=== PATIENT | female | born 1965 | race Caucasian/White ===

== ENCOUNTER 2020-07-26 09:35 | Observation (INO) | payer OTHER ==
[2020-07-26 10:23] LABS: #Eosinphils 0.1 10x3/uL (0.0-0.5); #Monocytes 0.5 10x3/uL (0.0-1.1); #Neutrophils 4.6 10x3/uL (1.5-8.4); %Basophils 0.6 % (0.0-2.0); %Eosinophils 1.6 % (0.0-6.0); %Lymphocytes 23.5 % (18.0-47.0); %Monocytes 6.8 % (0.0-10.0); %Neutrophils 67.1 % (40.0-75.0); Hemoglobin 12.6 g/dL (12.0-15.5); Mean Corpuscular HGB CONC 32.9 g/dL (32.0-36.0); Mean Corpuscular Hemoglobin 30.1 pg (27.0-33.0); Mean Corpuscular Volume 91.4 fl (81.6-98.3); Mean Platelet Volume 9.8 fl (7.4-10.4); Platelet Count 284 10x3/uL (150-450); RBC Distribution Width 12.9 % (11.5-14.5); Red Blood Cell (RBC) Count 4.19 10x6/uL (3.90-5.03); White Blood Cell (WBC) Count 6.8 10x3/uL (3.5-10.5)
[2020-07-26 10:33] LABS: ALT (SGPT) 18 U/L (8-55); AST (SGOT) 18 U/L (5-34); Albumin 4.1 g/dL (3.5-5.0); Alkaline Phosphatase 124 U/L (40-110); Anion Gap 17 mmol/L (10-20); BUN (Urea Nitrogen) 10 mg/dL (9.8-20.1); Bilirubin, Total 0.3 mg/dL (0.2-1.2); Calc. Creatinine Clearance 0 mL/min (70-130); Carbon Dioxide 24 mmol/L (22-29); Chloride 103 mmol/L (98-107); Globulin 3.1 g/dL (2.4-3.5); Glucose 205 mg/dL (70-105); Potassium 4.5 mmol/L (3.5-5.1); Protein, Total 7.2 g/dL (6.0-8.3); Sodium 139 mmol/L (136-145)
[2020-07-26 11:00] LABS: Calcium 9.2 mg/dL (7.8-10.44)
[2020-07-26] MEDS ORDERED: Nitroglycerin 2% Ointment 1 INCH/1 GM Packet ONE (11:14)
[2020-07-26] MEDS ORDERED: Aspirin 325 MG TAB ONE (11:15)
[2020-07-26] MEDS ORDERED: Bisacodyl 10 MG SUPP PR PRN (13:31)
[2020-07-26] MEDS ORDERED: Dextrose 50% Abboject 50 ML SYRINGE SLOW IVP PRN (13:31)
[2020-07-26] MEDS ORDERED: Acetaminophen 325 MG TAB PO PRN (13:31)
[2020-07-26] MEDS ORDERED: Dextrose 5% in Water 1,000 ML IV PRN (13:31)
[2020-07-26] MEDS ORDERED: Guaifenesin DM 100-10/5 ML UDCUP PO PRN (13:31)
[2020-07-26] MEDS ORDERED: Senokot S 8.6-50 MG TAB PO PRN (13:31)
[2020-07-26] MEDS ORDERED: HumaLOG 300 UNITS/3 ML VIAL SC PRN ×2 (13:31)
[2020-07-26] MEDS ORDERED: HYDROcodone/Acetaminophen 5/325 mg Tablet PO PRN (13:31)
[2020-07-26] MEDS ORDERED: Zolpidem Tartrate 5 MG TAB PO PRN (13:31)
[2020-07-26] MEDS ORDERED: Ondansetron PF 4 MG/2 ML Vial IVP PRN (13:31)
[2020-07-26] MEDS ORDERED: Ondansetron ODT 4 MG TAB PO PRN (13:31)
[2020-07-26] MEDS ORDERED: Nitroglycerin 0.4 MG TAB (25 Tab Bottle) SL PRN (13:31)
[2020-07-26] MEDS ORDERED: Calcium Carbonate 500 MG ChewTAB PO PRN (13:31)
[2020-07-26] MEDS ORDERED: Loperamide HCl 2 MG CAP PO PRN (13:31)
[2020-07-26 13:40] LABS: Troponin I Less than 0.010 ng/mL (< 0.028)
[2020-07-26 13:56] VITALS: BMI 39.3
[2020-07-26 16:11] LABS: Troponin I Less than 0.010 ng/mL (< 0.028)
[2020-07-26] MEDS: Famotidine 20 MG TAB PO SCH (21:35)
[2020-07-27 02:31] LABS: SARS-CoV-2 PCR by NAA Not Detected (NotDetected)
[2020-07-27 06:23] LABS: Cardiac Risk 3.5 (Less than 4.5)
[2020-07-27] MEDS: Famotidine 20 MG TAB PO SCH (08:46)
[2020-07-27] MEDS ORDERED: Aspirin 325 MG TAB PO SCH (09:00)
[2020-07-27 11:06] LABS: Hemoglobin A1c 8.4 % (4.0-6.0)
[2020-07-27 12:11] VITALS: BP 133/72; TEMP 97.9
== END 2020-07-27 14:41 | disposition home or self-care (01) ==
LOC: CSHERS 09:35 → CSHTELE 11:25 → INTOOBSV 12:19 → UNDOADMOB 12:19 → CSHTELE 12:19
PROVIDERS: ADMIT Internal Medicine; ATTEND Internal Medicine
DX: R07.9 Chest pain, unspecified (principal); E11.9 Type 2 diabetes mellitus without complications; E66.9 Obesity, unspecified; M19.90 Unspecified osteoarthritis, unspecified site; G62.9 Polyneuropathy, unspecified; F41.9 Anxiety disorder, unspecified; Z79.899 Other long term (current) drug therapy; Z79.84 Long term (current) use of oral hypoglycemic drugs; Z20.822 Contact with and (suspected) exposure to COVID-19
CPT/HCPCS: 36415; 36416; 71045; 80053; 80061; 83036; 84484; 85025; 87635; 93005; 93306; G0378; U0003; U0005

== ENCOUNTER 2021-01-31 18:20 | Emergency (ER) | payer OTHER ==
[2021-01-31 19:37] LABS: #Basophils 0.1 10x3/uL (0.0-0.2); #Eosinphils 0.3 10x3/uL (0.0-0.5); #Monocytes 0.5 10x3/uL (0.0-1.1); #Neutrophils 3.7 10x3/uL (1.5-8.4); %Basophils 0.8 % (0.0-2.0); %Eosinophils 4.4 % (0.0-6.0); %Lymphocytes 29.1 % (18.0-47.0); %Monocytes 8.4 % (0.0-10.0); %Neutrophils 57.1 % (40.0-75.0); Hemoglobin 11.1 g/dL (12.0-15.5); Mean Corpuscular HGB CONC 31.2 g/dL (32.0-36.0); Mean Platelet Volume 9.6 fl (7.4-10.4); Platelet Count 326 10x3/uL (150-450); RBC Distribution Width 13.5 % (11.5-14.5); Red Blood Cell (RBC) Count 3.83 10x6/uL (3.90-5.03); White Blood Cell (WBC) Count 6.4 10x3/uL (3.5-10.5)
[2021-01-31 19:53] LABS: ALT (SGPT) 8 U/L (8-55); AST (SGOT) 13 U/L (5-34); Alkaline Phosphatase 103 U/L (40-110); Anion Gap 15 mmol/L (10-20); BUN (Urea Nitrogen) 11 mg/dL (9.8-20.1); Bilirubin, Total 0.4 mg/dL (0.2-1.2); Calc. Creatinine Clearance 0 mL/min (70-130); Calcium 9.5 mg/dL (7.8-10.44); Carbon Dioxide 26 mmol/L (22-29); Chloride 105 mmol/L (98-107); Globulin 3.3 g/dL (2.4-3.5); Glucose 104 mg/dL (70-105); Potassium 4.9 mmol/L (3.5-5.1); Protein, Total 7.3 g/dL (6.0-8.3); Sodium 141 mmol/L (136-145)
[2021-01-31] MEDS ORDERED: Fleet Enema 133 ML BOT PR SCH (21:30)
== END 2021-01-31 23:23 | disposition home or self-care (01) ==
LOC: CSHERS 18:20
DX: K59.00 Constipation, unspecified (principal); G62.9 Polyneuropathy, unspecified; M19.90 Unspecified osteoarthritis, unspecified site; M79.7 Fibromyalgia
CPT/HCPCS: 74177; 80053; 85025; 93005; 93010; 96372; J0500

== ENCOUNTER 2021-02-14 08:39 | Outpatient (CLI) | payer OTHER | END 2021-02-14 08:40 | disposition home or self-care (01) | LOC: CSHRAD 08:39 | PROVIDERS: ATTEND Orthopaedic Surgery | DX: M54.50 Low back pain, unspecified (principal); Z98.890 Other specified postprocedural states; M47.816 Spondylosis without myelopathy or radiculopathy, lumbar region | CPT/HCPCS: 72100 ==

== ENCOUNTER 2021-04-25 09:15 | Outpatient (CLI) | payer OTHER | END 2021-04-25 09:16 | disposition home or self-care (01) | LOC: CSHRAD 09:15 | PROVIDERS: ATTEND Orthopaedic Surgery | DX: M54.50 Low back pain, unspecified (principal); M51.36 Other intervertebral disc degeneration, lumbar region | CPT/HCPCS: 72100 ==

== ENCOUNTER 2021-08-14 12:16 | Outpatient (CLI) | payer OTHER ==
[2021-08-14 13:24] LABS: Hemoglobin 10.8 g/dL (12.0-15.5); Mean Corpuscular HGB CONC 31.5 g/dL (32.0-36.0); Mean Corpuscular Volume 92.2 fl (81.6-98.3); Mean Platelet Volume 9.8 fl (7.4-10.4); Platelet Count 267 10x3/uL (150-450); RBC Distribution Width 15.5 % (11.5-14.5); Red Blood Cell (RBC) Count 3.72 10x6/uL (3.90-5.03); White Blood Cell (WBC) Count 6.5 10x3/uL (3.5-10.5)
[2021-08-14 14:15] LABS: Anion Gap 11 mmol/L (10-20); BUN (Urea Nitrogen) 11 mg/dL (9.8-20.1); Calc. Creatinine Clearance 0 mL/min (70-130); Calcium 8.6 mg/dL (7.8-10.44); Carbon Dioxide 28 mmol/L (22-29); Chloride 107 mmol/L (98-107); Glucose 92 mg/dL (70-105); Potassium 5.1 mmol/L (3.5-5.1); Sodium 141 mmol/L (136-145)
[2021-08-15 00:48] LABS: SARS-CoV-2 PCR by NAA Not Detected (NotDetected)
== END 2021-08-14 12:17 | disposition home or self-care (01) ==
LOC: CSHLAB 12:16
PROVIDERS: ATTEND Orthopaedic Surgery
DX: Z01.812 Encounter for preprocedural laboratory examination (principal); Z20.822 Contact with and (suspected) exposure to COVID-19
CPT/HCPCS: 80048; 82306; 85027; U0003; U0005

== ENCOUNTER 2021-08-17 10:42 | Observation (INO) | payer OTHER ==
[2021-08-15 09:28] VITALS: BMI 35.6
[2021-08-17] MEDS ORDERED: Acetaminophen 500 MG TAB ONE (11:46)
[2021-08-17] MEDS ORDERED: Gabapentin 300 MG CAP ONE (11:46)
[2021-08-17] MEDS ORDERED: Ketorolac Tromethamine 30 MG/ML VIAL ONE (11:47)
[2021-08-17] MEDS ORDERED: ceFAZolin 2 GM/Dextrose 50 ML IVPB ONE (12:50)
[2021-08-17] MEDS ORDERED: Neomycin-Polymyxin 1 ML AMP ONE (12:50)
[2021-08-17] MEDS ORDERED: Fentanyl 100 MCG/2 ML VIAL ONE ×3 (12:53→14:43)
[2021-08-17] MEDS ORDERED: PROPOFOL 20 ML ONE ×2 (12:53→14:36)
[2021-08-17] MEDS ORDERED: EPINEPHrine 1 MG/ML AMP ONE (12:55)
[2021-08-17] MEDS ORDERED: Bupivacaine PF 0.5% 30 ML VIAL ONE (12:55)
[2021-08-17] MEDS ORDERED: Ondansetron PF 4 MG/2 ML Vial ONE (13:49)
[2021-08-17] MEDS ORDERED: PHENYLEPHRINE-NS 100 MCG/ML 10 ML SYRINGE ONE (13:49)
[2021-08-17] MEDS ORDERED: Glycopyrrolate 0.2 MG/ML 5 ML SYRINGE ONE (13:49)
[2021-08-17] MEDS ORDERED: Rocuronium Bromide 10 MG/ML (10ML VIAL) ONE (13:49)
[2021-08-17] MEDS ORDERED: Lidocaine 1% PF 5 ML VIAL ONE (13:49)
[2021-08-17] MEDS ORDERED: Midazolam HCl 2 mg/2 ml Vial ONE (13:50)
[2021-08-17] MEDS ORDERED: HYDROmorphone 0.5 MG/0.5 ML SYRINGE ONE (15:35)
[2021-08-17] MEDS ORDERED: Zolpidem Tartrate 5 MG TAB PO PRN ×2 (15:45→22:00)
[2021-08-17] MEDS ORDERED: diphenhydrAMINE 50 MG/ML VIAL IM/IV PRN (15:45)
[2021-08-17] MEDS ORDERED: Ondansetron PF 4 MG/2 ML Vial IVP PRN (15:45)
[2021-08-17] MEDS ORDERED: HYDROmorphone 40 MG/20 ML 10 MG in Sodium Chloride 0.9% 45 ML IV PRN (15:45)
[2021-08-17] MEDS ORDERED: Promethazine HCl 25 MG/ML VIAL IM PRN (15:45)
[2021-08-17] MEDS ORDERED: Naloxone HCl 0.4 mg/ml Vial IV PRN (15:45)
[2021-08-17] MEDS ORDERED: diphenhydrAMINE 25 MG CAP PO PRN (15:45)
[2021-08-17] MEDS ORDERED: HYDROmorphone HCL/PF 10 MG in Sodium Chloride 0.9% 49 ML IVPB PRN (17:00)
[2021-08-17] MEDS ORDERED: Ondansetron ODT 4 MG TAB PO PRN (20:31)
[2021-08-17] MEDS: Gabapentin 300 MG CAP PO SCH (21:37)
[2021-08-17] MEDS: HYDROcodone/Acetaminophen 10/325 mg Tablet PO PRN (21:37)
[2021-08-17] MEDS ORDERED: HYDROcodone/Acetaminophen 10/325 mg Tablet PO PRN (22:00)
[2021-08-18] MEDS: HYDROcodone/Acetaminophen 10/325 mg Tablet PO PRN ×2 (03:40→09:00)
[2021-08-18] MEDS: Morphine 4 MG/ML VIAL SLOW IVP PRN ×2 (06:13→10:29)
[2021-08-18] MEDS ORDERED: hydrALAZINE 20 MG/ML VIAL ONE (06:47)
[2021-08-18] MEDS ORDERED: hydrALAZINE 20 MG/ML VIAL SLOW IVP PRN (06:48)
[2021-08-18] MEDS: Gabapentin 300 MG CAP PO SCH (08:59)
[2021-08-18 12:08] VITALS: BP 151/69; TEMP 98.6
== END 2021-08-18 14:10 | disposition home or self-care (01) ==
LOC: CSHSDC 10:42 → CSHPP 18:59
PROVIDERS: ADMIT Orthopaedic Surgery; ATTEND Orthopaedic Surgery
PROC: 0MTL0ZZ Resection of Right Hip Bursa and Ligament, Open Approach (ICD-10-PCS; principal; 2021-08-17)
PROC: 0LMJ0ZZ Reattachment of Right Hip Tendon, Open Approach (ICD-10-PCS; 2021-08-17)
DX: S76.011A Strain of muscle, fascia and tendon of right hip, initial encounter (principal); M70.61 Trochanteric bursitis, right hip; E11.9 Type 2 diabetes mellitus without complications; M19.90 Unspecified osteoarthritis, unspecified site; K21.9 Gastro-esophageal reflux disease without esophagitis; M79.7 Fibromyalgia; Z79.84 Long term (current) use of oral hypoglycemic drugs; Z79.899 Other long term (current) drug therapy; Z88.8 Allergy status to other drugs, medicaments and biological substances
CPT/HCPCS: 36416; 96374; 96375; C1713; G0378; J0171; J0360; J0690; J1170; J1885; J2250; J2270; J2405; J2704; J3010; J3370; J3490; S0020

== ENCOUNTER 2024-01-06 12:25 | Day surgery (SDC) | payer OTHER ==
[2024-01-02 09:14] VITALS: BMI 27.9
[2024-01-06 14:04] LABS: Anion Gap 10 mmol/L (10-20); BUN (Urea Nitrogen) 13 mg/dL (9.8-20.1); Calc. Creatinine Clearance 96 mL/min (70-130); Calcium 9.3 mg/dL (7.8-10.44); Carbon Dioxide 28 mmol/L (22-29); Chloride 103 mmol/L (98-107); Estimated GFR 100; Glucose 80 mg/dL (70-105); Potassium 4.2 mmol/L (3.5-5.1); Sodium 137 mmol/L (136-145)
[2024-01-06] MEDS ORDERED: Midazolam HCl 2 mg/2 ml Vial ONE ×2 (14:31→14:56)
[2024-01-06] MEDS ORDERED: Bupivacaine HCl 0.5%/Epinephrine 1:200,000/PF 30 ml Vial ONE (14:48)
[2024-01-06] MEDS ORDERED: Dexamethasone 20 MG/5 ML VIAL ONE (14:56)
[2024-01-06] MEDS ORDERED: PROPOFOL 20 ML ONE (14:56)
[2024-01-06] MEDS ORDERED: CEFAZOLIN 2 GM VIAL ONE (14:56)
[2024-01-06] MEDS ORDERED: Ketorolac Tromethamine 30 MG (1 mL) VIAL ONE (14:56)
[2024-01-06] MEDS ORDERED: fentaNYL 50 mcg/mL 1 mL Vial ONE (14:56)
[2024-01-06] MEDS ORDERED: Lidocaine 1% PF 5 ML VIAL ONE (14:56)
[2024-01-06] MEDS ORDERED: Ondansetron PF 4 MG/2 ML Vial ONE (14:56)
[2024-01-06] MEDS ORDERED: PHENYLEPHRINE-NS 100 MCG/ML 10 ML SYRINGE ONE (15:15)
[2024-01-06] MEDS ORDERED: Glycopyrrolate 0.2 MG/ML 5 ML SYRINGE ONE (15:15)
[2024-01-06] MEDS ORDERED: HYDROcodone/Acetaminophen 5/325 mg Tablet ONE (16:38)
== END 2024-01-06 18:00 | disposition home or self-care (01) ==
LOC: CSHSDC 12:25
PROVIDERS: ATTEND Surgery
PROC: 0JB70ZZ Excision of Back Subcutaneous Tissue and Fascia, Open Approach (ICD-10-PCS; principal; 2024-01-06)
DX: D49.2 Neoplasm of unspecified behavior of bone, soft tissue, and skin (principal); E55.9 Vitamin D deficiency, unspecified; E78.5 Hyperlipidemia, unspecified; E66.9 Obesity, unspecified; D64.9 Anemia, unspecified; E11.40 Type 2 diabetes mellitus with diabetic neuropathy, unspecified; M19.90 Unspecified osteoarthritis, unspecified site; E65 Localized adiposity; K43.2 Incisional hernia without obstruction or gangrene; M79.3 Panniculitis, unspecified; K91.2 Postsurgical malabsorption, not elsewhere classified; Z90.710 Acquired absence of both cervix and uterus; Z68.27 Body mass index [BMI] 27.0-27.9, adult; Z98.84 Bariatric surgery status
CPT/HCPCS: 36415; 80048; 88307; 88311; 88312; 88341; 88342; J1100; J1885; J2250; J2405; J2704; J3010